=== PATIENT | female | born 1940 | race Caucasian/White ===

== ENCOUNTER 2016-08-05 09:47 | Outpatient (CLI) | payer OTHER ==
--- NOTE | 2016-08-05 10:50 | DIAGNOSTIC IMAGING REPORT ---
PROCEDURE: US VENOUS - BILATERAL EXT INDICATION: EDEMA OF BOTH LEGS TECHNIQUE: Color Doppler duplex imaging of the deep and superficial venous system without and with compression. COMPARISON: None. FINDINGS: RIGHT LOWER EXTREMITY: Deep and superficial venous system of the right lower extremity is within normal limits. There is no evidence of deep vein thrombosis or superficial thrombophlebitis. There is subcutaneous edema in the right calf. LEFT LOWER EXTREMITY: Deep and superficial venous system of the left lower extremity is within normal limits. There is no evidence of deep vein thrombosis or superficial thrombophlebitis. IMPRESSION: 1. Negative venous ultrasound of the bilateral lower extremities. 2. Subcutaneous edema of the right calf. 3. Results discussed with Dr. Wiley
[2016-08-27] MEDS ORDERED: ALLOPURINOL300 MG PO (13:02)
[2016-08-27] MEDS ORDERED: BENAZEPRIL HCL20 MG PO (13:03)
[2016-08-27] MEDS ORDERED: CARVEDILOL25 MG PO (13:04)
[2016-08-27] MEDS ORDERED: FUROSEMIDE40 MG PO (13:05)
[2016-08-27] MEDS ORDERED: JANUVIA100 MG PO (13:06)
[2016-08-27] MEDS ORDERED: GLIMEPIRIDE1 MG PO (13:06)
[2016-08-27] MEDS ORDERED: PRAVASTATIN SOD20 MG PO (13:07)
== END 2016-08-05 23:00 ==
LOC: US SRH 09:47
DX: R60.0 Localized edema (principal)

== ENCOUNTER 2016-09-04 12:50 | Observation (INO) | payer OTHER ==
[~2016-09-04] VITALS: Ht 172.7 cm; Wt 97.3 kg
[~2016-09-04 12:50] MED LIST: ALLOPURINOL300 MG PO; BENAZEPRIL HCL20 MG PO; CARVEDILOL25 MG PO; FUROSEMIDE40 MG PO; GLIMEPIRIDE1 MG PO; JANUVIA100 MG PO; PRAVASTATIN SOD20 MG PO
--- NOTE | 2016-09-04 13:49 | DIAGNOSTIC IMAGING REPORT ---
PROCEDURE: XR CHEST 1 VIEW INDICATION: GENERALIZED WEAKNESS TECHNIQUE: Portable AP view 01:10 p.m. COMPARISON: None. FINDINGS: Left lower lobe infiltrate. Mild cardiomegaly. Right lung is clear. IMPRESSION: 1. Left lower lobe infiltrate
--- NOTE | 2016-09-04 14:51 | ED CLINICAL REPORT ---
Clinical Report - Physicians/Mid Levels [facility] [address] [place] [address] 09/04/2016 12:51 Patient: ROSITA PAUL Time Seen: 1302. Arrived- By ambulance. 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 HISTORY OF PRESENT ILLNESS Chief Complaint: DECREASED MENTAL STATUS and LOW BLOOD SUGAR. This started today and is still present. It was gradual in onset and has been constant but is not gone now. The patient has "felt strange" and is described as having decreased responsiveness. The patient was not found unresponsive. Not a retirement resident. No history of chronic dementia. No change in diabetic routine, alcohol recently, recent drug use or medication given prior to arrival. Prior to arrival, the dextro stick was low. The patient has had weakness. No numbness or recent fall. No difficulty walking. Usually is alert and oriented X3 and usually has normal mobility. Similar symptoms previously: None. Recent medical care: Not recently seen/assessed. REVIEW OF SYSTEMS No chest pain, difficulty breathing or skin rash. All systems otherwise negative, except as recorded above. PAST HISTORY See nurses notes. Medications: Januvia 100 mg daily. Ferrous sulfate 352 mg daily. Benazepril 20 mg daily. Furosemide 80mg daily. Glimepiride 4 mg QHS prn. Pravastatin 20 mg daily. Omeprazole 20 mg daily. Carvedilol 25 mg bid. Allergies: No Known Drug Allergy. SOCIAL HISTORY Never smoker. No alcohol use or drug use. Is a local resident. ADDITIONAL NOTES The nursing notes have been reviewed. PHYSICAL EXAM Vital Signs: 09/04/2016 13:39 BP: 118/60. HR: 100. RR: 26. O2 saturation: 95%. 09/04/2016 13:22 O2 saturation: 94%. Blood pressure normal. Oxygen saturation normal. Appearance: No acute distress. ( appears slightly sleepy). (nontoxic appearance). Head: Head atraumatic. Eyes: Pupils equal, round and reactive to light. ENT: Normal ENT inspection. Airway intact. Moist mucous membranes. Pharynx normal. Neck: Normal inspection. Neck supple. No meningeal signs. CVS: Normal heart rate and rhythm. Heart sounds normal. Pulses normal. Respiratory: No respiratory distress. Breath sounds normal. Abdomen: Soft and nontender. No organomegaly. Skin: Skin warm and dry. Normal skin color. No rash. Normal skin turgor. Extremities: Extremities exhibit normal ROM. No lower extremity edema. Neuro: Oriented X 3. Mood/affect normal. Speech normal. Cranial nerves normal (as tested). No cerebellar findings. No motor deficit. No sensory deficit. LABS, X-RAYS, AND EKG Chest X-ray: (PROCEDURE: XR CHEST 1 VIEW INDICATION: GENERALIZED WEAKNESS TECHNIQUE: Portable AP view 01:10 p.m. COMPARISON: None. FINDINGS: Left lower lobe infiltrate. Mild cardiomegaly. Right lung is clear. IMPRESSION: 1. Left lower lobe infiltrate). Laboratory Tests: CBC w Diff: (CHIKI: 09/04/2016 13:00) ( [facility] [place] 09/04/2016 14:06) Final results Test Result Flag Units (Reference) WHITE BLOOD COUNT 11.7 H K/uL (4.5-11.5) RED BLOOD COUNT 2.99 L M/uL (4.00-5.20) HEMOGLOBIN 8.0 L gm/dL (12.0-16.0) HEMATOCRIT 25.8 L % (36.0-46.0) MEAN CELL VOLUME 86 fL (80-100) MEAN CORPUSCULAR HGB 27 pg (26-34) MEAN CORPUSCULAR HGB CONC 31 g/dL (31-37) RED CELL DISTRIBUTION WIDTH 22.0 H % (11.6-14.8) PLATELET COUNT 149 L K/uL (150-400) NEUTROPHIL % 83.6 H % (50-75) LYMPH % 8.4 L % (25-40) MONO % 7.6 % (3-14) EOSINOPHIL % 0.3 % (0-4) BASOPHIL % 0.1 % (0-2) PT with INR: (CHIKI: 09/04/2016 13:00) ( [facility] [place] 09/04/2016 14:20) Final results Test Result Flag Units (Reference) INR 1.0 (0.8-1.2) Low Intensity Therapy: INR 1.5-2.0 PT range 18.5-23.1Mod.Intensity Therapy: INR 2.0-3.0 PT range 23.1-31.5High Intensity Therapy: INR 2.5-3.5 PT range 27.4-35.5High Intensity Therapy 2: INR 3.0-4.0 PT range 31.5-39.3 . PROGRESS AND PROCEDURES Course of Care: he patient is a pleasant 75-year-old female with past medical history significant for diabetes on Januvia and glyperimide, presenting for evaluation of hypoglycemia. patient noted to be sleepy from a family member which prompted them to call EMS. Patient is noted to be severely hypoglycemic in the field. Patient was given oral glucose. Accu-Chek noted here in the emergency department is noted to be significantly low. Accu-Chek was 37. Patient was given an amp of D50 through the left upper extremity IV. Accu-Chek repeat was noted to be significantly improved. Patient was also started on a D10 continuous IV 100 cc per hour. Patient was also given by mouth juice and food. Patient will be monitored closely while here in the emergency department. Other etiologies for the patient's hypoglycemia was evaluated. The checking for infectious etiologies or electrolytic derangements as a result of the severe hypoglycemia. Patient's workup is noted for the findings above. Patient with known chronic anemia and on iron supplementation. Hemoglobin and hematocrit are noted to be 8.0 and 25.8 respectively. Patient's GFR is noted to be significantly low. Patient with at least stage IV chronic kidney disease per family member. Because of the patient's significant hypoglycemia. Patient requires admission under observation for further monitoring and optimizing of her blood sugar. Do not feel patient is stable outpatient candidate. Had a discussion with the patient in regards to the diagnosis, workup, and plan of care. Patient is agreeable to treatment plan. All questions have been answered. Was able to discuss the case with the hospitalist who accepts the patient. No further recommendations made. I am now reviewing the patient's CXR and note the findings on chest xray different from my initial read. Called to the hospitalist. Will start patient on abx. Ceftriaxone and azithromycin started. Disposition: Observation in Acute Care. CLINICAL IMPRESSION Hypoglycemia (severe). left lower lobe pneumonia. (Electronically signed by Tj Locke Dr. 09/04/2016 22:26)
--- NOTE | 2016-09-04 14:51 | ED NURSING NOTES ---
Clinical Report - Nurses [facility] [address] [place] [address] 09/04/2016 12:51 Patient: ROSITA PAUL TRIAGE Triage time 12:53. Acuity: LEVEL 2. Chief Complaint: (LOW BLOOD SUGAR). --13:06 Letha Tomlin R.N. Triage time late entry - 1300. --17:10 Letha Tomlin R.N. 17:09 09/04/16. BP: 118/60. HR: 100. RR: 26. O2 saturation: 95%. Temp: 97.5 F. Pain level now: 010. --17:10 Letha Tomlin R.N. Weight: 83.4 kg stated. Height/Length: 68 inches Per Patient. BMI: 28. --13:05 Letha Tomlin R.N. Medications Carvedilol 25 mg bid. --13:44 Letha Tomlin R.N. Omeprazole 20 mg daily. --13:45 Letha Tomlin R.N. Pravastatin 20 mg daily. --13:45 Letha Tomlin R.N. Glimepiride 4 mg QHS prn. --13:45 Letha Tomlin R.N. Furosemide 80mg daily. --13:46 Letha Tomlin R.N. Benazepril 20 mg daily. --13:47 Letha Tomlin R.N. Ferrous sulfate 352 mg daily. --13:47 Letha Tomlin R.N. Januvia 100 mg daily. --13:47 Letha Tomlin R.N. Allergies No Known Drug Allergy. --13:03 Letha Tomlin R.N. History Arrived by EMS, and (A39). Historian: patient. This started just prior to arrival. ( Pt reported to her son she was light-headed and dizzy. He checked a BS and was in the 50s. Drove her to the fire station, where she had a BS of 30s. Was given oral glucose x2, brought her up to 170s. Upon arrival BS of 36 at bedside.). ( dizzy, light-headed). 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 PAST MEDICAL HX: Type I diabetes mellitus. SURGERY HX: No history of previous surgery. SOCIAL HX: Never smoker. No alcohol use or drug use. --13:06 Letha Tomlin R.N. PROBLEMS: Renal failure . 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 --13:05 Letha Tomlin R.N. ADDITIONAL SURGERIES: no known surgeries. Interventions ID band on patient. To treatment room. --13:06 Letha Tomlin R.N. PHYSICAL ASSESSMENT GENERAL / NEURO / PSYCH: Alert. Oriented X 4. HEENT: No facial asymmetry noted. RESPIRATORY: Decreased breath sounds. ( sats 88% on room air, up to 94 on 2.5 l). CVS: Normal sinus rhythm noted. SKIN: Skin is warm and dry. --13:10 Letha Tomlin R.N. NURSING PROGRESS NOTES 13:01 09/04/2016 Site #1 started via IV in the left forearm with an 20g angiocath, with aseptic technique and good blood return; one attempt. Blood drawn: rainbow set. Labeled in the presence of the patient and sent to the lab. Saline lock flushed with 10 mL saline. --13:16 Paola Ferrell R.N. 13:02 09/04/2016 D-50 IVP 25 gm given over 3 minute(s) via site #1. Allergies verified and confirmed 5 rights. --13:17 Paola Ferrell R.N. Finger stick glucose: 200; performed by nurse; result shown to the ED physician. --13:19 Letha Tomlin R.N. special education administrator, pulse oximeter and NIBP monitor placed on patient. --13:22 Letha Tomlin R.N. 13:22 09/04/16. O2 saturation: 94%. --13:22 Letha Tomlin R.N. Call light placed in reach. Side rails up x 2. Bed placed in lowest position. --13:22 Letha Tomlin R.N. 13:15 09/04/2016 Site #2 started via IV in the right forearm with an 18g angiocath. --13:40 Letha Tomlin R.N. 13:39 09/04/16. BP: 118/60. HR: 100. RR: 26. O2 saturation: 95%. O2 started via nasal cannula at 2 liters/minute. --13:41 Letha Tomlin R.N. ( Sons at bedside. Pt. resting quietly. Provided with two warm blankets.). --13:41 Letha Tomlin R.N. 13:00 09/04/2016 Started bag #1 500 mL IV Fluids IV D10W; at 100 mL/hr via site #1 via IV pump. --13:43 Paola Ferrell R.N. Finger stick glucose: 166; performed by nurse. ( pt assisted to the bathroom for clean catch.). --14:19 Letha Tomlin R.N. ( pt unable to urinate. Did have loose BM, black. Pt is on iron.). --14:25 Letha Tomlin R.N. 14:25 09/04/16. BP: 100/54. HR: 87. RR: 23. O2 saturation: 98% at 2 liters/minute. O2 started via nasal cannula. --14:25 Letha Tomlin R.N. ( bladder scan 57ml). --14:43 Shikha Yang Critical value relayed to ED by lab. Critical value received by james mike. Glucose: 36. BUN: 158. Creatinine: 4.4. Critical value read back. ED physician notifed of critical value (Dr. Elizalde). --14:58 Letha Tomlin R.N. Finger stick glucose: 172. --15:09 Letha Tomlin R.N. 15:09 09/04/16. BP: 92/46. HR: 90. RR: 18. O2 saturation: 97%. --15:11 Letha Tomlin R.N. 16:45 09/04/16. BP: 100/56. HR: 94. RR: 16. O2 saturation: 94%. --16:46 Letha Tomlin R.N. 17:09 09/04/2016 IV Fluids IV D10W Discontinued: bag #1 discontinued upon admission. Total amount infused: 350 mL. --08:12 Letha Tomlin R.N. DISPOSITION / DISCHARGE Departure time: 1700. Admitted to the Critical Care Unit (302). ( report to james rm taken to the floor by RN). --17:09 Letha Tomlin R.N. 17:04 09/04/16. BP: 100/56. HR: 94. RR: 16. O2 saturation: 94%. Pain level now: 05/29. --17:09 Letha Tomlin R.N. Locked/Released at 09/07/2016 8:12 by Letha Tomlin R.N.
--- NOTE | 2016-09-04 14:51 | ED NURSING NOTES ---
Clinical Report - Nurses [facility] [address] [place] [address] 09/04/2016 12:51 Patient: ROSITA PAUL TRIAGE Triage time 12:53. Acuity: LEVEL 2. Chief Complaint: (LOW BLOOD SUGAR). --13:06 Letha Tomlin R.N. Triage time late entry - 1300. --17:10 Letha Tomlin R.N. 17:09 09/04/16. BP: 118/60. HR: 100. RR: 26. O2 saturation: 95%. Temp: 97.5 F. Pain level now: 010. --17:10 Letha Tomlin R.N. Weight: 83.4 kg stated. Height/Length: 68 inches Per Patient. BMI: 28. --13:05 Letha Tomlin R.N. Medications Carvedilol 25 mg bid. --13:44 Letha Tomlin R.N. Omeprazole 20 mg daily. --13:45 Letha Tomlin R.N. Pravastatin 20 mg daily. --13:45 Letha Tomlin R.N. Glimepiride 4 mg QHS prn. --13:45 Letha Tomlin R.N. Furosemide 80mg daily. --13:46 Letha Tomlin R.N. Benazepril 20 mg daily. --13:47 Letha Tomlin R.N. Ferrous sulfate 352 mg daily. --13:47 Letha Tomlin R.N. Januvia 100 mg daily. --13:47 Letha Tomlin R.N. Allergies No Known Drug Allergy. --13:03 Letha Tomlin R.N. History Arrived by EMS, and (A39). Historian: patient. This started just prior to arrival. ( Pt reported to her son she was light-headed and dizzy. He checked a BS and was in the 50s. Drove her to the fire station, where she had a BS of 30s. Was given oral glucose x2, brought her up to 170s. Upon arrival BS of 36 at bedside.). ( dizzy, light-headed). 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 PAST MEDICAL HX: Type I diabetes mellitus. SURGERY HX: No history of previous surgery. SOCIAL HX: Never smoker. No alcohol use or drug use. --13:06 Letha Tomlin R.N. PROBLEMS: Renal failure . 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 --13:05 Letha Tomlin R.N. ADDITIONAL SURGERIES: no known surgeries. Interventions ID band on patient. To treatment room. --13:06 Letha Tomlin R.N. PHYSICAL ASSESSMENT GENERAL / NEURO / PSYCH: Alert. Oriented X 4. HEENT: No facial asymmetry noted. RESPIRATORY: Decreased breath sounds. ( sats 88% on room air, up to 94 on 2.5 l). CVS: Normal sinus rhythm noted. SKIN: Skin is warm and dry. --13:10 Letha Tomlin R.N. NURSING PROGRESS NOTES 13:01 09/04/2016 Site #1 started via IV in the left forearm with an 20g angiocath, with aseptic technique and good blood return; one attempt. Blood drawn: rainbow set. Labeled in the presence of the patient and sent to the lab. Saline lock flushed with 10 mL saline. --13:16 Paola Ferrell R.N. 13:02 09/04/2016 D-50 IVP 25 gm given over 3 minute(s) via site #1. Allergies verified and confirmed 5 rights. --13:17 Paola Ferrell R.N. Finger stick glucose: 200; performed by nurse; result shown to the ED physician. --13:19 Letha Tomlin R.N. quality assurance monitor, pulse oximeter and NIBP monitor placed on patient. --13:22 Letha Tomlin R.N. 13:22 09/04/16. O2 saturation: 94%. --13:22 Letha Tomlin R.N. Call light placed in reach. Side rails up x 2. Bed placed in lowest position. --13:22 Letha Tomiln R.N. 13:15 09/04/2016 Site #2 started via IV in the right forearm with an 18g angiocath. --13:40 Letha Tomlin R.N. 13:39 09/04/16. BP: 118/60. HR: 100. RR: 26. O2 saturation: 95%. O2 started via nasal cannula at 2 liters/minute. --13:41 Letha Tomlin R.N. ( Sons at bedside. Pt. resting quietly. Provided with two warm blankets.). --13:41 Letha Tomlin R.N. 13:00 09/04/2016 Started bag #1 500 mL IV Fluids IV D10W; at 100 mL/hr via site #1 via IV pump. --13:43 Paola Ferrell R.N. Finger stick glucose: 166; performed by nurse. ( pt assisted to the bathroom for clean catch.). --14:19 Letha Tomlin R.N. ( pt unable to urinate. Did have loose BM, black. Pt is on iron.). --14:25 Letha Tomlin R.N. 14:25 09/04/16. BP: 100/54. HR: 87. RR: 23. O2 saturation: 98% at 2 liters/minute. O2 started via nasal cannula. --14:25 Letha Tomlin R.N. ( bladder scan 57ml). --14:43 Shikha Yang Critical value relayed to ED by lab. Critical value received by james mike. Glucose: 36. BUN: 158. Creatinine: 4.4. Critical value read back. ED physician notifed of critical value (Dr. Elizalde). --14:58 Letha Tomlin R.N. Finger stick glucose: 172. --15:09 Letha Tomlin R.N. 15:09 09/04/16. BP: 92/46. HR: 90. RR: 18. O2 saturation: 97%. --15:11 Letha Tomlin R.N. 16:45 09/04/16. BP: 100/56. HR: 94. RR: 16. O2 saturation: 94%. --16:46 Letha Tomlin R.N. 17:09 09/04/2016 IV Fluids IV D10W Discontinued: bag #1 discontinued upon admission. Total amount infused: 350 mL. --08:12 Letha Tomlin R.N. DISPOSITION / DISCHARGE Departure time: 1700. Admitted to the Critical Care Unit (302). ( report to james rm taken to the floor by RN). --17:09 Letha Tomlin R.N. 17:04 09/04/16. BP: 100/56. HR: 94. RR: 16. O2 saturation: 94%. Pain level now: 05/29. --17:09 Letha Tomlin R.N. Locked/Released at 09/07/2016 8:12 by Letha Tomlin R.N.
--- NOTE | 2016-09-04 14:51 | ED CLINICAL REPORT ---
Clinical Report - Physicians/Mid Levels [facility] [address] [place] [address] 09/04/2016 12:51 Patient: ROSITA PAUL Time Seen: 1302. Arrived- By ambulance. 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 HISTORY OF PRESENT ILLNESS Chief Complaint: DECREASED MENTAL STATUS and LOW BLOOD SUGAR. This started today and is still present. It was gradual in onset and has been constant but is not gone now. The patient has "felt strange" and is described as having decreased responsiveness. The patient was not found unresponsive. Not a halfway resident. No history of chronic dementia. No change in diabetic routine, alcohol recently, recent drug use or medication given prior to arrival. Prior to arrival, the dextro stick was low. The patient has had weakness. No numbness or recent fall. No difficulty walking. Usually is alert and oriented X3 and usually has normal mobility. Similar symptoms previously: None. Recent medical care: Not recently seen/assessed. REVIEW OF SYSTEMS No chest pain, difficulty breathing or skin rash. All systems otherwise negative, except as recorded above. PAST HISTORY See nurses notes. Medications: Januvia 100 mg daily. Ferrous sulfate 352 mg daily. Benazepril 20 mg daily. Furosemide 80mg daily. Glimepiride 4 mg QHS prn. Pravastatin 20 mg daily. Omeprazole 20 mg daily. Carvedilol 25 mg bid. Allergies: No Known Drug Allergy. SOCIAL HISTORY Never smoker. No alcohol use or drug use. Is a local resident. ADDITIONAL NOTES The nursing notes have been reviewed. PHYSICAL EXAM Vital Signs: 09/04/2016 13:39 BP: 118/60. HR: 100. RR: 26. O2 saturation: 95%. 09/04/2016 13:22 O2 saturation: 94%. Blood pressure normal. Oxygen saturation normal. Appearance: No acute distress. ( appears slightly sleepy). (nontoxic appearance). Head: Head atraumatic. Eyes: Pupils equal, round and reactive to light. ENT: Normal ENT inspection. Airway intact. Moist mucous membranes. Pharynx normal. Neck: Normal inspection. Neck supple. No meningeal signs. CVS: Normal heart rate and rhythm. Heart sounds normal. Pulses normal. Respiratory: No respiratory distress. Breath sounds normal. Abdomen: Soft and nontender. No organomegaly. Skin: Skin warm and dry. Normal skin color. No rash. Normal skin turgor. Extremities: Extremities exhibit normal ROM. No lower extremity edema. Neuro: Oriented X 3. Mood/affect normal. Speech normal. Cranial nerves normal (as tested). No cerebellar findings. No motor deficit. No sensory deficit. LABS, X-RAYS, AND EKG Chest X-ray: (PROCEDURE: XR CHEST 1 VIEW INDICATION: GENERALIZED WEAKNESS TECHNIQUE: Portable AP view 01:10 p.m. COMPARISON: None. FINDINGS: Left lower lobe infiltrate. Mild cardiomegaly. Right lung is clear. IMPRESSION: 1. Left lower lobe infiltrate). Laboratory Tests: CBC w Diff: (CHIKI: 09/04/2016 13:00) ( [facility] [place] 09/04/[place] 14:06) Final results Test Result Flag Units (Reference) WHITE BLOOD COUNT 11.7 H K/uL (4.5-11.5) RED BLOOD COUNT 2.99 L M/uL (4.00-5.20) HEMOGLOBIN 8.0 L gm/dL (12.0-16.0) HEMATOCRIT 25.8 L % (36.0-46.0) MEAN CELL VOLUME 86 fL (80-100) MEAN CORPUSCULAR HGB 27 pg (26-34) MEAN CORPUSCULAR HGB CONC 31 g/dL (31-37) RED CELL DISTRIBUTION WIDTH 22.0 H % (11.6-14.8) PLATELET COUNT 149 L K/uL (150-400) NEUTROPHIL % 83.6 H % (50-75) LYMPH % 8.4 L % (25-40) MONO % 7.6 % (3-14) EOSINOPHIL % 0.3 % (0-4) BASOPHIL % 0.1 % (0-2) PT with INR: (CHIKI: 09/04/2016 13:00) ( [facility] [place] 09/04/2016 14:20) Final results Test Result Flag Units (Reference) INR 1.0 (0.8-1.2) Low Intensity Therapy: INR 1.5-2.0 PT range 18.5-23.1Mod.Intensity Therapy: INR 2.0-3.0 PT range 23.1-31.5High Intensity Therapy: INR 2.5-3.5 PT range 27.4-35.5High Intensity Therapy 2: INR 3.0-4.0 PT range 31.5-39.3 . PROGRESS AND PROCEDURES Course of Care: he patient is a pleasant 75-year-old female with past medical history significant for diabetes on Januvia and glyperimide, presenting for evaluation of hypoglycemia. patient noted to be sleepy from a family member which prompted them to call EMS. Patient is noted to be severely hypoglycemic in the field. Patient was given oral glucose. Accu-Chek noted here in the emergency department is noted to be significantly low. Accu-Chek was 37. Patient was given an amp of D50 through the left upper extremity IV. Accu-Chek repeat was noted to be significantly improved. Patient was also started on a D10 continuous IV 100 cc per hour. Patient was also given by mouth juice and food. Patient will be monitored closely while here in the emergency department. Other etiologies for the patient's hypoglycemia was evaluated. The checking for infectious etiologies or electrolytic derangements as a result of the severe hypoglycemia. Patient's workup is noted for the findings above. Patient with known chronic anemia and on iron supplementation. Hemoglobin and hematocrit are noted to be 8.0 and 25.8 respectively. Patient's GFR is noted to be significantly low. Patient with at least stage IV chronic kidney disease per family member. Because of the patient's significant hypoglycemia. Patient requires admission under observation for further monitoring and optimizing of her blood sugar. Do not feel patient is stable outpatient candidate. Had a discussion with the patient in regards to the diagnosis, workup, and plan of care. Patient is agreeable to treatment plan. All questions have been answered. Was able to discuss the case with the hospitalist who accepts the patient. No further recommendations made. I am now reviewing the patient's CXR and note the findings on chest xray different from my initial read. Called to the hospitalist. Will start patient on abx. Ceftriaxone and azithromycin started. Disposition: Observation in Acute Care. CLINICAL IMPRESSION Hypoglycemia (severe). left lower lobe pneumonia. (Electronically signed by Tj Locke Dr. 09/04/2016 22:26)
--- NOTE | 2016-09-04 14:52 | ED ORDER SUMMARY ---
..... Patient: ROSITA PAUL OrderSheet [facility] VisitID: [id number] [place] [address] 75y, F Registration Date/Time: 09/04/2016 ORDER SHEET Weight: 83.4 kg (stated) Allergies: No Known Drug Allergy GENERAL ORDERS: Chest 1V Urgent (13:03 09/04/2016 Dalton Luna) (Ack 13:34 Preethi) Obstetrician (Continuous) (hypoglycemia) (13:03 09/04/2016 Dalton Luna) (13:41 LSullivan R.N.) - (PO fluids and juice) (13:09/04/2016 Dalton Luna) (13:18 LSullivan R.N.) CBC w Diff Urgent (13:09/04/2016 Dalton Luna) (13:18 LSullivan R.N.) CMP Urgent (13:09/04/2016 Dalton Luna) (Ack 13:34 Preethi) (13:41 LSullivan R.N.) UA-Culture if indicated Urgent (13:06 09/04/2016 Dalton Luna) (Ack 13:34 Preethi) (14:06 SStone R.N.) PT with INR Urgent (13:06 09/04/2016 Dalton Luna) (Ack 13:34 Preethi) (13:41 LSullivan R.N.) TSH Urgent (13:09/04/2016 Dalton Luna) (Ack 13:34 Preethi) (13:41 LSullivan R.N.) Magnesium Urgent (13:09/04/2016 Dalton Luna) (Ack 13:34 Preethi) (13:41 LSullivan R.N.) Pulse oximeter (13:09/04/2016 Dalton Luna) (13:18 LSullivan R.N.) POC Glucose (at 13:15) (13:09/04/2016 Dalton Luna) (Ack 13:35 Preethi) (13:41 LSullivan R.N.) POC Glucose (1415) (14:00 09/04/2016 Dalton Luna) (14:04 SStone R.N.) MEDICATION ORDERS: - (D-10 IV 100 cc/hr) (13:05 09/04/2016 Dalton Luna) (Cancelled: Other13:42 LSullivan R.N.) IV FLUIDS: D-50 IV 1 amp (HIGH ALERT MEDICATION, NOW, IVP) (13:04 09/04/2016 Dalton Luna) (13:17 LSullivan R.N.) IV D10W : initial bolus none -, then 100 mL/hr for X1 (NOW) (13:41 09/04/2016 LSullivan R.N. verbal order read back to Dalton Luna) (13:43 LSullivan R.N.) ORDER SHEET NOTES: [Electronically signed by Tj Locke Dr. (22:26 09/04/2016)] [Electronically signed by Letha Tomlin R.N. (08:12 09/07/2016)] [Electronically locked/signed by Letha Tomlin R.N. (08:12 09/07/2016)]
--- NOTE | 2016-09-04 14:52 | ED ORDER SUMMARY ---
..... Patient: ROSITA PAUL OrderSheet [facility] VisitID: [id number] [place] [address] 75y, F Registration Date/Time: 09/04/2016 ORDER SHEET Weight: 83.4 kg (stated) Allergies: No Known Drug Allergy GENERAL ORDERS: Chest 1V Urgent (13:03 09/04/2016 Dalton Luna) (Ack 13:34 Preethi) Air Traffic Coordinator (Continuous) (hypoglycemia) (13:03 09/04/2016 Dalton Luna) (13:41 LSullivan R.N.) - (PO fluids and juice) (13:09/04/2016 Dalton Luna) (13:18 LSullivan R.N.) CBC w Diff Urgent (13:09/04/2016 Dalton Luna) (13:18 LSullivan R.N.) CMP Urgent (13:09/04/2016 Dalton Luna) (Ack 13:34 Preethi) (13:41 LSullivan R.N.) UA-Culture if indicated Urgent (13:06 09/04/2016 Dalton Luna) (Ack 13:34 Preethi) (14:06 SStone R.N.) PT with INR Urgent (13:06 09/04/2016 Dalton Luna) (Ack 13:34 Preethi) (13:41 LSullivan R.N.) TSH Urgent (13:09/04/2016 Dalton Luna) (Ack 13:34 Preethi) (13:41 LSullivan R.N.) Magnesium Urgent (13:09/04/2016 Dalton Luna) (Ack 13:34 Preethi) (13:41 LSullivan R.N.) Pulse oximeter (13:09/04/2016 Dalton Luna) (13:18 LSullivan R.N.) POC Glucose (at 13:15) (13:09/04/2016 Dalton Luna) (Ack 13:35 Preethi) (13:41 LSullivan R.N.) POC Glucose (1415) (14:00 09/04/2016 Dalton Luna) (14:04 SStone R.N.) MEDICATION ORDERS: - (D-10 IV 100 cc/hr) (13:05 09/04/2016 Dalton Luna) (Cancelled: Other13:42 LSullivan R.N.) IV FLUIDS: D-50 IV 1 amp (HIGH ALERT MEDICATION, NOW, IVP) (13:04 09/04/2016 Dalton Luna) (13:17 LSullivan R.N.) IV D10W : initial bolus none -, then 100 mL/hr for X1 (NOW) (13:41 09/04/2016 LSullivan R.N. verbal order read back to Dalton Luna) (13:43 LSullivan R.N.) ORDER SHEET NOTES: [Electronically signed by Tj Locke Dr. (22:26 09/04/2016)] [Electronically signed by Letha Tomlin R.N. (08:12 09/07/2016)] [Electronically locked/signed by Letha Tomlin R.N. (08:12 09/07/2016)]
[2016-09-04 17:16] VITALS: BP 121/59
--- NOTE | 2016-09-04 19:36 | HISTORY AND PHYSICAL ---
ADMITTED: 09/04/2016 CHIEF COMPLAINT: 1. Hypoglycemia HISTORY OF PRESENT ILLNESS: This is a 75-year-old white female who developed sweats, shakiness and felt really weak this morning, which symptoms started quite rapidly and persisted, so patient was taken by her relatives to the fire station and was found blood sugar of 33 and then transferred to emergency department. Since the patient is on the long-acting sulfonylurea was being admitted for observation for hypoglycemia. The patient states that she ate only a few fruits for her dinner, which was 5 p.m. last night and she practically missed her breakfast and she was going to have a sandwich, but did not like it, so did not have it, so basically she did have any food since 5 p.m. and that was only a few fruit. She says she took both diabetic medications this morning. MEDICAL/SURGICAL HISTORY: Past medical history: Remarkable for diabetes mellitus , hypertension, and chronic renal failure stage 4, on the verge of dialysis. Surgical history: None. Hospitalization: None. MEDICATIONS: 1. Carvedilol 25 mg twice a day. 2. Omeprazole 20 mg daily. 3. Pravastatin 20 mg daily. 4. Glimepiride 4 mg at bedtime. 5. Furosemide 80 mg daily. 6. Benazepril 20 mg daily. 7. Iron supplement 325 daily. 8. Januvia 100 mg daily. ALLERGIES: 1. THERE IS NO KNOWN DRUG ALLERGY. SOCIAL HISTORY: The patient is a , has 4 kids. Lives alone. No history of smoking, alcohol or drug abuse. FAMILY HISTORY: REVIEW OF SYSTEMS: No difficulty with her vision, but has hearing loss. No recent weight changes. No cough, runny nose, sore throat or congestion. No shortness of breath or chest pain. No palpitations. No nausea, no vomiting, no abdominal pain, no indigestion. Normal regular bowel movements. No dysuria, frequency or incontinence, but patient has oliguria, but she had urination this morning. No arthralgia or myalgia. No headaches. No dizziness. No tingling, no numbness, no syncope and no localized weakness. PHYSICAL EXAMINATION: VITAL SIGNS: On the admission blood pressure 100/54, pulse is 87, respirations 23, oxygen saturation 98% on 2 L and last blood sugar was 170 after treatment in the emergency. GENERAL APPEARANCE: Well-developed, well-nourished, moderately obese. HEENT: Ears: Has a hearing aid on. Nose: Normal mucosa. Mouth: Normal hypopharynx, no exudation, no erythema. NECK: Supple. No JVD. No carotid bruit. No palpable mass. SKIN: Warm and dry with good turgor. LUNGS: Clear to auscultation. No rhonchi or wheezing or crackles. HEART: Regular S1, S2. No murmur. No S3 was heard. ABDOMEN: Soft, nontender. Bowel sounds are positive. EXTREMITIES: No edema. Good peripheral pulses. No signs of deep vein thrombosis. MUSCULOSKELETAL: Grossly within normal limits. NEUROLOGIC: Alert and oriented x3. Cranial nerves are grossly intact. No motor deficits. Pupils are equal, round, and reactive to light. Extraocular movements are intact. No nystagmus. No cerebellar signs. LAB/IMAGING: Labs: White blood count is 11.7, hemoglobin 8, hematocrit is 25.8, and platelet count is 149,000. INR is 1. Creatinine is 4.4, sodium is 135, potassium is 4.2, chloride is 98, CO2 is 23, calcium is 8.1. Magnesium is 2.1. Liver enzymes unremarkable. TSH is 3.5. IMPRESSION: 1. Hypoglycemia. The patient induced due to lack of nutrition. 2. End-stage renal disease, on the verge of hemodialysis. 3. Hypertension. PLAN: The patient will be admitted to observation and we will put the patient on D5 normal saline 75 mL an hour and we will monitor the blood sugar closely and we will put the antidiabetic medications on hold for time being. The patient should be able to discharge home in the morning.
[2016-09-04 22:43] VITALS: BP 106/53
[2016-09-05] VITALS (12 sets, daily range): BP systolic 80–132; BP diastolic 41–75
--- NOTE | 2016-09-05 07:52 | Progress Note ---
Subjective General ADVANCED CARE PLAN History of Present Illness This is a 75-year-old white female who developed sweats, shakiness and felt really weak this morning, which symptoms started quite rapidly and persisted, so patient was taken by her relatives to the fire station and was found blood sugar of 33 and then transferred to emergency department. Since the patient is on the long-acting sulfonylurea was being admitted for observation for hypoglycemia. The patient states that she ate only a few fruits for her dinner, which was 5 p.m. last night and she practically missed her breakfast and she was going to have a sandwich, but did not like it, so did not have it, so basically she did have any food since 5 p.m. and that was only a few fruit. She says she took both diabetic medications this morning. A discussion was undertaken with the patient regarding previous advance care arrangements/decisions. The following advanced directives were noted by the patient and discussed with me at the time of admission. ADVANCED DIRECTIVES: 1. Living well: No 2. POLST: No 3. CODE STATUS: Full No Cold 4. Durable Power Medical Representative [facility] care: No 5. Donor card: No The patient has expressed interest in not pursuing any form of resuscitation at this time. She has opted not to pursue intubation/mechanical ventilation, CPR, electrical cardioversion, or life-sustaining efforts involving drugs at the time of cardiopulmonary arrest. The patient's wishes were documented in the chart and orders regarding the patient's wishes entered into the [employer] system. The "Advance Care Plan Document" was not distributed to patient to discuss with her family. Less than 30 minutes was spent in performing the above tasks and documentation of the patient's advanced care plan.
--- NOTE | 2016-09-05 08:12 | Progress Note ---
Subjective General doing fine no dyspnea no cough, or sputum, no chest pain no fever or chills, Blood sugar stable and not dropped since last night, no nausea or vomiting Physical Exam Vital Signs / I&Os Vital Signs Date Time Temp Pulse Resp B/P Pulse O2 O2 Flow FiO2 Ox Delivery Rate 09/05 0643 97.0 84 19 91/50 86 Room Air 09/05 0435 94/41 09/05 0217 97.3 83 18 81/48 93 Room Air 09/04 2243 97.3 108 18 106/53 93 Room Air 09/04 2030 Room Air 09/04 1836 90 09/04 1716 97.3 90 20 121/59 92 Room Air I&O 09/05 0000 09/04 1600 09/04 0800 Intake Total 300 Output Total 450 Balance -150 General Appearance Oriented X3 Lungs Clear to auscultation Cardiovascular Regular rate and rhythm, Normal S1 and S2, No murmurs, gallops, rubs Extremities No edema Skin No Rashes Psych/Mental Status Mental status normal Assessment and Plan Problem List 1. Hypoglycemia secondary to sulfonylurea Plan resolved doing fine 2. Anemia Plan Pt. states her anemia is chronic and schedulled to have IV iron infusion as outpatient and CRF is big part of this too 3. Pneumonia Plan there is no other clinical signs of pneumonia except CXR will give one more day of IV abx then discharge on oral abx 4. Chronic kidney disease Plan stable will monitor
[2016-09-06 02:18] VITALS: BP 99/49
[2016-09-06 07:08] VITALS: BP 90/51
[2016-09-06 09:44] VITALS: BP 96/59
--- NOTE | 2016-09-07 08:12 | ED MED RECONCILIATION SUMMARY ---
Patient: ROSITA PAUL Medication Reconciliation Report [facility] VisitID: [id number] [address] [place] [address] 75y, F Registration Date/Time: 09/04/2016 Weight: 83.4 kg Height/Length: 68 in. BMI: 28.0 ALLERGIES: No Known Drug Allergy The patient's Home Medications are listed below: THE FOLLOWING MEDICATIONS NEED TO BE RECONCILED: Benazepril 20 mg daily Carvedilol 25 mg bid Ferrous sulfate 352 mg daily Furosemide 80mg daily Glimepiride 4 mg QHS prn Januvia 100 mg daily Omeprazole 20 mg daily Pravastatin 20 mg daily The source(s) of the original Home Medication information: Not obtained. The following Medications were given to the patient in the Emergency Department: D-50 [IVP] IVP 25 gm, administered: 09/04/2016 1:02:00 PM IV D10W IV Fluids bolus 0, then 100 mL/hr, administered: 09/04/2016 1:00:00 PM The following Medications were prescribed to the patient: None.
--- NOTE | 2016-09-07 08:12 | ED MAR SUMMARY ---
..... Medication Administration Record [facility] [address] [place] [address] Patient: ROSITA PAUL Visit ID: [id number] 75y, F Weight: 83.4 kg Height/Length: 68 in BMI: 28 ALLERGIES: No Known Drug Allergy Start 13:00 09/04/2016 Paola Ferrell R.N., Stop 17:09 09/04/2016 Letha Tomlin R.N. Medication Administered: IV D10W, Dose: IV Fluids, Rate: 100 mL/hr, Dispensed: 500 mL bag, Site: #1. Medication Ordered: IV D10W : initial bolus none -, then 100 mL/hr for X1 (NOW). Given 13:02 09/04/2016 Paola Ferrell R.N. Medication Administered: D-50 [IVP], Dose: 25 gm IVP over 3 minute(s), Site: #1 left forearm. Medication Ordered: D-50 IV 1 amp (HIGH ALERT MEDICATION, NOW, IVP).
--- NOTE | 2016-09-07 08:12 | ED DISCHARGE INSTRUCTIONS ---
Patient: ROSITA PAUL General Instructions [facility] VisitID: [id number] [address] [place] [address] 75y, F Registration Date/Time: 09/04/2016 Hypoglycemia (severe). left lower lobe pneumonia. (Electronically signed by Tj Locke Dr. 09/04/2016 22:26)
--- NOTE | 2016-09-07 08:12 | ED MED RECONCILIATION SUMMARY ---
Patient: ROSITA PAUL Medication Reconciliation Report [facility] VisitID: [id number] [address] [place] [address] 75y, F Registration Date/Time: 09/04/2016 Weight: 83.4 kg Height/Length: 68 in. BMI: 28.0 ALLERGIES: No Known Drug Allergy The patient's Home Medications are listed below: THE FOLLOWING MEDICATIONS NEED TO BE RECONCILED: Benazepril 20 mg daily Carvedilol 25 mg bid Ferrous sulfate 352 mg daily Furosemide 80mg daily Glimepiride 4 mg QHS prn Januvia 100 mg daily Omeprazole 20 mg daily Pravastatin 20 mg daily The source(s) of the original Home Medication information: Not obtained. The following Medications were given to the patient in the Emergency Department: D-50 [IVP] IVP 25 gm, administered: 09/04/2016 1:02:00 PM IV D10W IV Fluids bolus 0, then 100 mL/hr, administered: 09/04/2016 1:00:00 PM The following Medications were prescribed to the patient: None.
--- NOTE | 2016-09-07 08:12 | ED MAR SUMMARY ---
..... Medication Administration Record [address] [place] [address] Patient: ROSITA PAUL Visit ID: [id number] 75y, F Weight: 83.4 kg Height/Length: 68 in BMI: 28 ALLERGIES: No Known Drug Allergy Start 13:00 09/04/2016 Paola Ferrell R.N., Stop 17:09 09/04/2016 Letha Tomlin R.N. Medication Administered: IV D10W, Dose: IV Fluids, Rate: 100 mL/hr, Dispensed: 500 mL bag, Site: #1. Medication Ordered: IV D10W : initial bolus none -, then 100 mL/hr for X1 (NOW). Given 13:02 09/04/2016 Paola Ferrell R.N. Medication Administered: D-50 [IVP], Dose: 25 gm IVP over 3 minute(s), Site: #1 left forearm. Medication Ordered: D-50 IV 1 amp (HIGH ALERT MEDICATION, NOW, IVP).
--- NOTE | 2016-09-07 08:12 | ED DISCHARGE INSTRUCTIONS ---
Patient: ROSITA PAUL General Instructions [facility] VisitID: [id number] [address] [place] [address] 75y, F Registration Date/Time: 09/04/2016 Hypoglycemia (severe). left lower lobe pneumonia. (Electronically signed by Tj Locke Dr. 09/04/2016 22:26)
== END 2016-09-06 10:15 | disposition short-term general hospital (02) ==
LOC: ED SRH 12:50 → CC SRH 15:07 → TRANS SRH 15:07 → CC SRH 17:12
PROVIDERS: ADMIT Student in an Organized Health Care Education/Training Program
DX: E11.649 Type 2 diabetes mellitus with hypoglycemia without coma (principal); J18.9 Pneumonia, unspecified organism; E11.22 Type 2 diabetes mellitus with diabetic chronic kidney disease; I12.9 Hypertensive chronic kidney disease with stage 1 through stage 4 chronic kidney disease, or unspecified chronic kidney disease; N18.4 Chronic kidney disease, stage 4 (severe); Z79.84 Long term (current) use of oral hypoglycemic drugs; R40.0 Somnolence
CPT/HCPCS: 29243; 29244; 29247; 29250; 29251; 29263; 90004; 90047; 90074; 90098; 90100; 90469; 91162; 91163; 91672; 92132; 92720; 93140; 94060; 95059